=== PATIENT | male | born 1950 | race Two or more races ===

== ENCOUNTER 2016-11-05 10:16 | Day surgery (SDC) | payer OTHER ==
[2016-11-04 12:00] VITALS: BMI 23.1
[2016-11-05 12:29] VITALS: TEMP 97.8
[2016-11-05 13:38] VITALS: BP 119/80; PULSE 57
--- NOTE | 2016-11-08 13:21 | PATH ---
Surgical Pathology Report Patient Name: MARTHA ALVAREZ [facility]. Rec. #: [id number] /Age/Gender: 1950 (Age: 66) / M Account: [id number] Location: [facility]-ENDOSCOPY Taken: 11/05/2016 Received: 11/05/2016 Reported: 11/08/2016 Physicians: Veronica Ledezma M.D. Specimen(s) Received A: BX 2ND PORTION OF DUODENUM / BULB B: BX ANTRUM C: POLYP SIGMOID D: BX TRANSVERSE COLON POLYP E: BX HEPATIC FLEXURE POLYP Clinical History Weight loss/screening Duodenitis, gastritis, colon polyps, diverticulosis Final Diagnosis A. DUODENUM, SECOND PORTION AND BULB, BIOPSY: DUODENAL MUCOSA WITH CHRONIC INFLAMMATION AND FOCAL ASHLEY'S GLANDS HYPERPLASIA. NO HISTOLOGIC EVIDENCE OF GLUTEN SENSITIVE ENTEROPATHY (CELIAC DISEASE). B. STOMACH, ANTRUM, BIOPSY: GASTRIC ANTRAL MUCOSA WITH ACTIVE MARKED CHRONIC GASTRITIS. IMMUNOSTAIN FOR H. PYLORI IS POSITIVE FOR ORGANISMS (MODERATE NUMBER OF ORGANISMS). C. COLON, SIGMOID, POLYP, POLYPECTOMY: TUBULAR ADENOMA. D. COLON, TRANSVERSE, POLYP, POLYPECTOMY: TUBULAR ADENOMA. E. COLON, HEPATIC FLEXURE, POLYP, POLYPECTOMY: TUBULAR ADENOMA. Electronically Signed David Kruger M.D. Gross Description A. Received in formalin, labeled "biopsy second portion of duodenum/bulb" are 3 rea, irregular portions of soft tissue measuring 0.2-0.3 cm in greatest dimension. The specimens are submitted in toto in one cassette. B. Received in formalin, labeled "biopsy antrum" are 4 rea, irregular portions of soft tissue measuring 0.2 cm in greatest dimension. The specimens are submitted in toto in one cassette. C. Received in formalin, labeled "hot snare sigmoid colon polyp" is a rea, irregular portion of soft tissue measuring 0.5 cm in greatest dimension. The specimen is submitted in toto in one cassette. D. Received in formalin, labeled "hot snare transverse colon polyp" is a rea, irregular portion of soft tissue measuring 0.3 cm in greatest dimension. The specimen is submitted in toto in one cassette. E. Received in formalin, labeled "hot snare hepatic flexure polyp" is a rea, irregular portion of soft tissue measuring 0.3 cm in greatest dimension. The specimen is submitted in toto in one cassette. [facility]/11/05/2016 [facility]/11/05/2016
== END 2016-11-05 14:02 | disposition home or self-care (01) ==
LOC: JASU-ENDO 10:16
PROVIDERS: ATTEND Internal Medicine Gastroenterology
PROC: 0DBK8ZX Excision of Ascending Colon, Via Natural or Artificial Opening Endoscopic, Diagnostic (ICD-10-PCS; 2016-11-05)
PROC: 0DBN8ZX Excision of Sigmoid Colon, Via Natural or Artificial Opening Endoscopic, Diagnostic (ICD-10-PCS; 2016-11-05)
PROC: 0DB98ZX Excision of Duodenum, Via Natural or Artificial Opening Endoscopic, Diagnostic (ICD-10-PCS; 2016-11-05)
PROC: 0DB68ZX Excision of Stomach, Via Natural or Artificial Opening Endoscopic, Diagnostic (ICD-10-PCS; 2016-11-05)
PROC: 0DBL8ZX Excision of Transverse Colon, Via Natural or Artificial Opening Endoscopic, Diagnostic (ICD-10-PCS; principal; 2016-11-05 11:00)
DX: Z12.11 Encounter for screening for malignant neoplasm of colon (principal); D12.5 Benign neoplasm of sigmoid colon; D12.3 Benign neoplasm of transverse colon; K63.5 Polyp of colon; K57.30 Diverticulosis of large intestine without perforation or abscess without bleeding; K64.8 Other hemorrhoids; R63.4 Abnormal weight loss; R68.81 Early satiety; K29.70 Gastritis, unspecified, without bleeding; K29.80 Duodenitis without bleeding
CPT/HCPCS: 88305-TC; 88342-TC

== ENCOUNTER 2022-10-04 04:44 | Day surgery (SDC) | payer OTHER ==
[2022-10-04 09:15] VITALS: BMI 22.0
[2022-10-04 12:08] VITALS: TEMP 98
[2022-10-04 12:49] VITALS: PULSE 41; RESP 20
[2022-10-04 12:50] VITALS: BP 111/62
== END 2022-10-04 12:50 | disposition home or self-care (01) ==
LOC: JASU-ENDO 04:44
PROVIDERS: ATTEND Internal Medicine Gastroenterology
PROC: 0DBN8ZX Excision of Sigmoid Colon, Via Natural or Artificial Opening Endoscopic, Diagnostic (ICD-10-PCS; 2022-10-04)
PROC: 0DBM8ZX Excision of Descending Colon, Via Natural or Artificial Opening Endoscopic, Diagnostic (ICD-10-PCS; principal; 2022-10-04 10:15)
DX: Z12.11 Encounter for screening for malignant neoplasm of colon (principal); K63.5 Polyp of colon; K57.30 Diverticulosis of large intestine without perforation or abscess without bleeding; K64.8 Other hemorrhoids; Z86.010 Personal history of colon polyps
CPT/HCPCS: 88305-TC; 93005; 93010

== ENCOUNTER 2024-05-01 07:57 | Emergency (ER) | payer OTHER ==
[2024-05-01 08:04] VITALS: TEMP 97.6; BMI 27.4
[2024-05-01 09:51] LABS: BASO % 0.9 % (0-2.0); EOS % 1.2 % (0-4.5); HEMATOCRIT 45.7 % (35.4-49); HEMOGLOBIN 14.8 GM/dL (11.7-16.9); LYMPH % 18.2 % (8-40); MCH 30.2 pg (25.7-33.7); MCHC 32.4 g/dl (32.0-35.9); MEAN CELL VOLUME 93.2 fl (80-96); MEAN PLT VOLUME 7.7 fl (7.5-11.1); MONO % 4.1 % (3.8-10.2); NEUT % 75.6 % (42.8-82.8); PLATELET COUNT 355 10^3/uL (134-434)
[2024-05-01 09:53] LABS: INR 1.01 (0.83-1.09); PROTHROMBIN TIME (PATIENT) 11.6 SEC (9.7-13.0)
[2024-05-01 09:56] LABS: ACTIVATED PTT 29.8 SECONDS (25.2-36.5)
[2024-05-01 10:08] LABS: POTASSIUM 4.9 mmol/L (3.5-5.1)
[2024-05-01 10:17] LABS: ALBUMIN 3.7 g/dl (3.4-5.0); BLOOD UREA NITROGEN 13.2 mg/dL (7-18); CALCIUM 9.5 mg/dL (8.5-10.1); MAGNESIUM 2.2 mg/dL (1.8-2.4)
[2024-05-01 10:20] LABS: CREATININE 0.8 mg/dL (0.55-1.3); PHOSPHOROUS 2.4 mg/dL (2.5-4.9)
[2024-05-01 10:22] LABS: BILIRUBIN,TOTAL 0.4 mg/dL (0.2-1)
[2024-05-01 10:43] LABS: PH,URINE 5.5 (5.0-8.0); URINE APPEARANCE CLEAR; URINE BILIRUBIN NEGATIVE (NEGATIVE); URINE COLOR YELLOW; URINE GLUCOSE (UA) NEGATIVE (NEGATIVE); URINE KETONE NEGATIVE (NEGATIVE); URINE LEUK ESTERASE NEGATIVE (NEGATIVE); URINE NITRITE NEGATIVE (NEGATIVE); URINE PROTEIN TRACE (NEGATIVE); URINE UROBILINOGEN 0.2 mg/dL (0.2-1.0)
[2024-05-01] MEDS: SODIUM CHLORIDE 0.9% 500 ML INFUS.BAG IV ONE (10:50)
[2024-05-01 11:53] LABS: TOT PROT 7.4 g/dl (6.4-8.2)
[2024-05-01 12:06] VITALS: BP 125/76; PULSE 59; RESP 20
== END 2024-05-01 12:44 | disposition home or self-care (01) ==
LOC: JER 07:57
DX: R55 Syncope and collapse (principal); R42 Dizziness and giddiness; Z20.822 Contact with and (suspected) exposure to COVID-19
CPT/HCPCS: 0241U-QW; 36415; 71045-TC-FY; 80053; 81003; 83605; 83735; 84100; 84484; 85025; 85610; 85730; 86850; 86900; 86901; 87086; 93005; 93010; 99285-25